=== PATIENT | male | born 1985 | race Caucasian/White ===

== ENCOUNTER → 2018-05-30 | Outpatient (CLI) | payer BC ==
--- NOTE | 2018-05-30 15:25 | Diagnostic Imaging Report ---
PROCEDURE: CT left upper extremity without contrast. TECHNIQUE: Multiple contiguous axial images were obtained through the left upper extremity without the use of intravenous contrast. Auto Exposure Controls were utilized during the CT exam to meet ALARA standards for radiation dose reduction. INDICATION: Elbow pain. Fracture followup. COMPARISON: None available. FINDINGS: Status post ORIF of remote distal humeral fracture utilizing interfragmentary screws along with plate and screw fixation. The hardware is intact without features of loosening. The majority of the fracture appears to have healed via interosseous bridging. At its most inferior aspect in the intercondylar region, there may be incompletely healed fracture at the margins. Periosteal callus formation is present in this position along the anterior intercondylar region and could be a source of impaired flexion. There has also been plate and screw fixation of the ulna/olecranon. This fracture is completely healed. No incongruency of the articular surface is appreciated on this exam. There is likely mild to moderate posttraumatic osteoarthritis at the ulnotrochlear articulation. There is no radial head fracture. No elbow joint effusion is appreciated. No muscle atrophy. Distal biceps and brachialis tendons appear intact. IMPRESSION: 1. ORIF of distal bicondylar humeral fracture shows no hardware complication and there is near-complete solid osseous bridging of the fractures. 2. Heterotopic ossification/callus along the anterior aspect of the capitellum could be a source for limited flexion of the elbow. 3. Healed olecranon fracture. 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 Dictated by: Dictated on workstation # [id number]
== END ==
LOC: RAD FS 08:49
PROVIDERS: ATTEND Orthopaedic Surgery
DX: S42.492D Other displaced fracture of lower end of left humerus, subsequent encounter for fracture with routine healing (principal); Z98.890 Other specified postprocedural states
CPT/HCPCS: 73200

== ENCOUNTER 2019-06-17 06:06 | Emergency (ER) | payer BC ==
[~2019-06-17] VITALS: Ht 190.5 cm; Wt 110.1 kg
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
--- NOTE | 2019-06-17 06:25 | NUR ---
ice given to pt.
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
--- NOTE | 2019-06-17 07:07 | Diagnostic Imaging Report ---
INDICATION: Right elbow injury, pain. COMPARISON: None FINDINGS: Postoperative changes are seen involving the proximal ulna and radius. There is no acute fracture or dislocation. No joint effusion is seen. IMPRESSION: Postoperative changes without evidence of fracture or dislocation Dictated by: Dictated on workstation # [id number]
[2019-06-17] MEDS ORDERED: HYDR-83 PO (07:25)
[2019-06-17 07:32] VITALS: BP 148/84
== END 2019-06-17 07:32 | disposition home or self-care (01) ==
LOC: EDUNIT# 06:06 → ER FS 06:10
DX: S59.901A Unspecified injury of right elbow, initial encounter (principal); X50.1XXA Overexertion from prolonged static or awkward postures, initial encounter; Y93.72 Activity, wrestling; Y92.511 Restaurant or cafe as the place of occurrence of the external cause
CPT/HCPCS: 73080

== ENCOUNTER 2021-09-01 12:23 | Emergency (ER) | payer BC, OTHER ==
[~2021-09-01] VITALS: Ht 190 cm; Wt 100.0 kg
[~2021-09-01 12:23] MED LIST: ACHD5005 PO
[2021-09-01 12:37] VITALS: BP 140/70
[2021-09-01] MEDS ORDERED: TETRACAINE 0.5% OPHTH SOLN 4 ML BTL (SINGLE DOSE ONLY) OP ONE (13:00)
[2021-09-01] MEDS ORDERED: FLUORESCEIN (FLUOR-I-STRIPS) 1 MG STRP OP ONE (13:00)
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
== END 2021-09-01 13:45 | disposition home or self-care (01) ==
LOC: EDUNIT# 12:23 → ER FS 12:27
DX: S05.92XA Unspecified injury of left eye and orbit, initial encounter (principal); H54.7 Unspecified visual loss; Z28.310 Unvaccinated for COVID-19; W20.8XXA Other cause of strike by thrown, projected or falling object, initial encounter
CPT/HCPCS: 70480

== ENCOUNTER 2021-11-21 16:15 | Emergency (ER) | payer OTHER ==
[~2021-11-21] VITALS: Ht 190.5 cm; Wt 100.2 kg
--- NOTE | 2021-11-21 16:58 | Diagnostic Imaging Report ---
EXAMINATION: Left elbow radiographs, 3 views. COMPARISON: None. HISTORY: 36-year-old male, left arm pain. FINDINGS: There is sideplate and screw fixation hardware along the distal humerus. There are multiple additional fixation screws present. There is a chronic deformity of the distal humerus. There are multiple areas of ossification projecting along the expected distribution of the lateral ulnar collateral ligament complex and/or common extensor tendon. These are most consistent with sequela of remote prior injury. There is degenerative type enthesopathy in the region of the distal triceps tendon insertion. The joint space loss of the elbow with osteophyte formation. There is no large elbow joint effusion. There is no identified cortical or aggressive bone destruction. There is no identified acute appearing fracture. IMPRESSION: 1. Extensive hardware at the level of the distal humerus which appears intact. 2. Chronic appearing deformity of the distal humerus. 3. Advanced arthritis of the elbow without large elbow joint effusion. 4. No identified acute osseous abnormality. Dictated by: Dictated on workstation # [id number]
--- NOTE | 2021-11-21 16:59 | ED Upper Extremity ---
General Chief Complaint: Upper Extremity Stated Complaint: ARM INJURY Nursing Triage Note: PT AMB TO TRIAGE WITH COMPLAINT OF LEFT ARM PAIN. PT HAS EXTENSIVE ORTHOPEDIC HX OF LEFT UPPER ARM. STATES PAIN STARTED YESTERDAY. Source: patient Exam Limitations: no limitations History of Present Illness Date Seen by Provider: Nov 21, 2021 Time Seen by Provider: 16:59 Allergies and Home Medications Allergies Coded Allergies: No Known Drug Allergies (Unverified , 06/17/19) Patient Home Medication List Hydrocodone/Acetaminophen (Hydrocodone-Acetamin 5-325 mg) 1 Each Tablet, 1 EACH PO Q4H Prescribed by: BETSY MÉNDEZ on 06/17/19 0725 Hydrocodone/Acetaminophen (Hydrocodone-Acetamin 5-325 mg) 5 Mg-325 Mg Tablet, 1 TAB PO Q6H PRN for PAIN-MODERATE (5-7) Prescribed by: TOMMY HUTSON on 11/21/21 1711 Past Djrsnuv-Ohwtpq-Klgduq Hx Patient Social History Tobacco Use?: No Use of E-Cig and/or Vaping dev: No Substance use?: No Alcohol Use?: Yes Alcohol Frequency: Once in a while Pt feels they are or have been: No Seasonal Allergies Seasonal Allergies: No Past Medical History Surgeries: Yes Orthopedic Respiratory: No Cardiac: No Neurological: No Genitourinary: No Gastrointestinal: No Musculoskeletal: No Endocrine: No HEENT: No Cancer: No Psychosocial: No Integumentary: No Blood Disorders: No Physical Exam Vital Signs Vital Signs - First Documented 11/21/21 16:18 Pulse 57 Resp 16 B/P (MAP) 142/78 (99) Pulse Ox 98 O2 Delivery Room Air Capillary Refill : Less Than 3 Seconds Height, Weight, BMI Height: '" Weight: lbs. oz. kg; 27.00 BMI Method: Progress/Results/Core Measures Results/Orders My Orders Orders - TOMMY HUTSON CUSTOM GRINDER Elbow, Left, 3 Views (11/21/21 16:33) Hydrocodone/Apap 5/325 Tablet (Lortab 5 (11/21/21 17:00) Medications Given in ED Current Medications Medications Dose Ordered Sig/Sofie Route Start Time Stop Time Status Last Admin Dose Admin Acetaminophen/ Hydrocodone Bitart 1 ea ONCE ONCE PO 11/21/21 17:00 11/21/21 17:01 DC 11/21/21 17:19 1 EA Vital Signs/I&O 11/21/21 16:18 Pulse 57 Resp 16 B/P (MAP) 142/78 (99) Pulse Ox 98 O2 Delivery Room Air Blood Pressure Mean: 99 Departure Impression Primary Impression: Triceps tendon rupture Disposition: 01 HOME, SELF-CARE Condition: Improved Departure-Patient Inst. Decision time for Depature: 17:07 Referrals: NO,LOCAL PHYSICIAN (PCP/Family) Primary Care Physician Patient Instructions: Tendon Repair Add. Discharge Instructions: Plan: 1. Discharge home. 2. Follow up with Ortho provider of choice next week. 3. Keep affected site elevated above your heart over the next 72 hours to reduce swelling and pain. This is when the most swelling will occur. 5. Wear naomie bandage as directed. Re-wrap at least twice daily. 6. Ice 20 minutes at a time. 7. Wiggle fingers often to prevent swelling. 8. If extremity becomes numb, cold, more painful, blanched or discolored or excessively swollen, contact your physician or return to the ER. 9. May take Ibuprofen as needed for pain per package. You can take Hydrocodone 5/325mg by mouth every 6 hours as needed for pain. Do not drive or work while taking. 10. Return to ER for any new, concerning, or worsening symptoms. All discharge instructions reviewed with patient and/or family. Voiced understanding. Scripts Hydrocodone/Acetaminophen (Hydrocodone-Acetamin 5-325 mg) 5 Mg-325 Mg Tablet 1 TAB PO Q6H PRN for PAIN-MODERATE (5-7), #20 TAB 0 Refills Prov: TOMMY HUTSON APRN 11/21/21 TOMMY HUTSON CUSTOM GRINDER Nov 21, 2021 16:59
[2021-11-21] MEDS ORDERED: HYDROcodone/APAP 5 MG/325 MG (LORTAB) TAB PO ONE (17:00)
[2021-11-21] MEDS ORDERED: ACHD5005 PO ×2 (17:10→17:22)
[2021-11-21 17:22] VITALS: BP 142/78
== END 2021-11-21 17:22 | disposition home or self-care (01) ==
LOC: EDUNIT# 16:15 → ER 16:17
DX: M66.821 Spontaneous rupture of other tendons, right upper arm (principal)
CPT/HCPCS: 73080

== ENCOUNTER → 2021-11-23 | Outpatient (CLI) | payer OTHER ==
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
== END ==
LOC: RAD 14:45
PROVIDERS: ATTEND Nurse Practitioner
DX: Z01.89 Encounter for other specified special examinations (principal); M51.26 Other intervertebral disc displacement, lumbar region; M48.061 Spinal stenosis, lumbar region without neurogenic claudication
CPT/HCPCS: 72148

== ENCOUNTER → 2022-03-14 | Outpatient (CLI) | payer OTHER ==
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
--- NOTE | 2022-03-14 16:09 | Diagnostic Imaging Report ---
Indication: Left hip pain. Time of Exam: 1:35 PM AP view of pelvis and 2 views of the left hip were obtained. Femoral acetabular alignment is normal. Femoral head and neck are intact. There does appear to be a femoral bump at the femoral head and neck junction laterally on the left which can be seen with femoral acetabular impingement syndrome. Rami are intact. Right hip is intact. Impression: Femoral bump on the left, which can be seen with femoral acetabular impingement. No acute features detected. Dictated by: Dictated on workstation # [id number]
== END ==
LOC: RAD 12:31
PROVIDERS: ATTEND Nurse Practitioner
DX: M25.852 Other specified joint disorders, left hip (principal)
CPT/HCPCS: 73721

== ENCOUNTER 2023-01-16 11:06 | Emergency (ER) | payer OTHER ==
[~2023-01-16] VITALS: Ht 190.5 cm; Wt 107.7 kg
--- NOTE | 2023-01-16 11:34 | ED Lower Extremity ---
General Chief Complaint: Lower Extremity Stated Complaint: LT KNEE SWELLING Nursing Triage Note: PT AMBULATE TO ROOM FS02 WITHOUT DIFFICULTY WITH C/O LEFT KNEE PAIN AND SWELLING. PT REPORTS HX OF SURGERY ON LEFT KNEE AND HAD HAD TO HAVE FLUID REMOVED PREVIOUSLY. PT STATES PAIN IS DIFFERENT THIS TIME. Source: patient Exam Limitations: no limitations History of Present Illness Date Seen by Provider: Jan 16, 2023 Time Seen by Provider: 11:17 Initial Comments 37-year-old male presents to the ER complaining of left anterior knee pain. Patient reports history of meniscal injury in and subsequent prepatellar bursitis/inflammation intermittently since that time. He reports that he drai matt fluid from his knee occasionally by himself. Recently the prepatellar region has become mildly inflamed/swollen but of more significance to this patient is the discomfort with everyday movements as well as concern that there may be a foreign body in the knee. Patient denies any trauma or puncture wounds. No fever or chills reported. Patient has NSAIDs at home that he takes intermittently and uses a neoprene knee sleeve occasionally; neither of these are consistent. His pain is moderate and worse with movement/palpation. Patient continues to participate in mixed martial arts and [employer]. Allergies and Home Medications Allergies Coded Allergies: No Known Drug Allergies (Unverified , 06/17/19) Patient Home Medication List Home Medication List Reviewed: Yes Hydrocodone/Acetaminophen (Hydrocodone-Acetamin 5-325 mg) 1 Each Tablet, 1 EACH PO Q4H Prescribed by: BETSY MÉNDEZ on 06/17/19 0725 Hydrocodone/Acetaminophen (Hydrocodone-Acetamin 5-325 mg) 5 Mg-325 Mg Tablet, 1 TAB PO Q6H PRN for PAIN-MODERATE (5-7) Prescribed by: TOMMY HUTSON on 11/21/21 1723 Review of Systems Constitutional: no symptoms reported (All other systems negative except as documented in HPI.), see HPI Past Pyokbmh-Rbhpnr-Tnobeb Hx Patient Social History Tobacco Use?: No Smoking Status: Never a Smoker Smokeless Tobacco Frequency: Never a User Use of E-Cig and/or Vaping dev: No Use of E-Cig and/or Vaping [place]: Never a User Substance use?: No Alcohol Use?: No Pt feels they are or have been: No Seasonal Allergies Seasonal Allergies: No Past Medical History Surgeries: Yes Orthopedic Respiratory: No Cardiac: No Neurological: No Genitourinary: No Gastrointestinal: No Musculoskeletal: No Endocrine: No HEENT: No Cancer: No Psychosocial: No Integumentary: No Blood Disorders: No Physical Exam Vital Signs Vital Signs - First Documented 01/16/23 11:10 Temp 36.7 Pulse 68 Resp 16 B/P (MAP) 157/98 (117) O2 Delivery Room Air Capillary Refill : Less Than 3 Seconds Height, Weight, BMI Height: '" Weight: lbs. oz. kg; 29.00 BMI Method: General Appearance: WD/WN, no apparent distress HEENT: PERRL/EOMI, normal ENT inspection, TMs normal, pharynx normal Neck: non-tender, full range of motion, supple, normal inspection Cardiovascular: normal peripheral pulses, regular rate, rhythm, no edema, no gallop, no JVD, no murmur Respiratory: chest non-tender, lungs clear, normal breath sounds, no resp iratory distress, no accessory muscle use Gastrointestinal: normal bowel sounds, non tender, soft, no organomegaly, no pulsatile mass Back: normal inspection, no CVA tenderness, no vertebral tenderness Hips: right hip non-tender; bilateral hip non-tender; right hip normal inspection; bilateral hip normal inspection; right hip normal range of motion; bilateral hip normal range of motion; right hip no evidence of injury; bilateral hip no evidence of injury; right hip bone tenderness, right hip deformity, right hip ecchymosis Legs: right leg non-tender; bilateral leg non-tender; right leg normal inspection; bilateral leg normal inspection; right leg normal range of motion; b ilateral leg normal range of motion; right leg no evidence of injury; bilateral leg no evidence of injury; right leg abrasions, right leg limited range of motion, right leg swelling Knees: right knee non-tender, right knee normal inspection; bilateral knee normal range of motion; left knee other (Mild swelling over the prepatellar bursa region with tenderness to palpation. No warmth noted. No evidence of foreign body. Ligamentous structures appear intact.) Ankles: bilateral ankle non-tender, bilateral ankle normal inspection, bilateral ankle normal range of motion, bilateral ankle no evidence of injury Feet: bilateral foot non-tender, bilateral foot normal inspection, bilateral foot normal range of motion, bilateral foot no evidence of injury Reflexes: 0 knee (R); 3+ knee (R), 3+ knee (L), 3+ ankle (R), 3+ ankle (L) Neurologic/Tendon: normal sensation, normal motor functions, normal tendon functions, responds to pain, no evidence tendon injury Neurologic/Psychiatric: shampooer II-XII nml as tested, no motor/sensory deficits, alert, normal mood/affect, oriented x 3 Skin: normal color, warm/dry Lymphatic: no adenopathy Progress/Results/Core Measures Results/Orders My Orders Orders - OPAL BERMAN DO Knee 3 View Left (01/16/23 11:26) Vital Signs/I&O 01/16/23 11:10 Temp 36.7 Pulse 68 Resp 16 B/P (MAP) 157/98 (117) O2 Delivery Room Air Blood Pressure Mean: 117 Progress Progress Note : Time: 11:31 Progress Note Obtain x-rays of the left knee to evaluate for fracture versus foreign body. I suspect that the patient's bursitis is flaring up and if x-rays are negative will prescribe prednisone and tramadol to help with pain and inflammation. Recommend follow-up with orthopedics and/or PCP for MRI if no improvement in 1 week. Recommend compression via Kaushik wrap or knee sleeve. Diagnostic Imaging Diagonstic Imaging: Xray (Left knee x-ray negative per emergency physician interpretation.) Departure Impression Primary Impression: Bursitis, prepatellar, left Disposition: 01 HOME, SELF-CARE Condition: Stable Departure-Patient Inst. Referrals: DONOVAN HENRY Please call for follow-up appointment if your symptoms do not improve in the next 3 to 5 days. Patient Instructions: Bursitis (DC), Prepatellar Bursitis Exercises Add. Discharge Instructions: You should take an anti-inflammatory daily and use compression on your knee to help with swelling. Take prescriptions provided by myself as prescribed. Avoid strenuous activity for the next 1 to 3 days to allow your knee to rest. All discharge instructions reviewed with patient and/or family. Voiced understanding. Scripts Tramadol HCl (Tramadol HCl) 50 Mg Tablet 50 MG PO Q6H PRN for PAIN for 5 Days, #20 TAB 0 Refills Prov: OPAL BERMAN DO 01/16/23 Prednisone (Prednisone) 20 Mg Tab 40 MG PO DAILY for 5 Days, #10 TAB 0 Refills Prov: OPAL BERAMN DO 01/16/23 OPAL BERMAN DO Jan 16, 2023 11:34
[2023-01-16] MEDS ORDERED: PRD20T PO (11:42)
[2023-01-16] MEDS ORDERED: TRM50T PO (11:42)
[2023-01-16 11:47] VITALS: BP 141/84
--- NOTE | 2023-01-16 11:47 | Diagnostic Imaging Report ---
INDICATION: Anterior left knee pain. TIME OF EXAM: 11:38 AM 3 views left knee were obtained. There is some medial compartmental joint space narrowing compatible with degenerative change. Patellofemoral and lateral compartments are fairly well-maintained. No fracture, dislocation or effusion is identified. IMPRESSION: [id number] medial compartmental degenerative change. No acute feature is detected. Dictated by: Dictated on workstation # [id number]
== END 2023-01-16 11:47 | disposition home or self-care (01) ==
LOC: EDUNIT# 11:06 → ER FS 11:08
DX: M70.42 Prepatellar bursitis, left knee (principal)
CPT/HCPCS: 73562